=== PATIENT | male | born 1955 | race African-American/Black ===

== ENCOUNTER 2020-03-30 12:04 | Emergency (ER) | payer OTHER, SELFPAY ==
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
== END 2020-03-30 14:16 | disposition home or self-care (01) ==
LOC: MADERS 12:04
DX: S39.012A Strain of muscle, fascia and tendon of lower back, initial encounter (principal); S16.1XXA Strain of muscle, fascia and tendon at neck level, initial encounter; E10.9 Type 1 diabetes mellitus without complications; I10 Essential (primary) hypertension; V43.52XA Car driver injured in collision with other type car in traffic accident, initial encounter
CPT/HCPCS: 72040; 72100

== ENCOUNTER 2025-10-09 17:47 | Emergency (ER) | payer MEDICARE, MEDICAID ==
[2025-10-09] MEDS ORDERED: Dextrose 50% Abboject 50 ML SYRINGE ONE (18:42)
[2025-10-09 18:51] LABS: #Basophils 0.1 thou/uL (0.0-0.2); #Eosinophils 0.1 thou/uL (0.0-0.7); #Lymphocytes 1.2 thou/uL (1.20-3.40); #Monocytes 0.5 thou/uL (0.11-0.59); #Neutrophils 6.0 thou/uL (1.40-6.50); %Basophils 1.2 % (0.0-1.0); %Eosinophils 1.1 % (0.0-10.0); %Lymphocytes 15.3 % (21.0-51.0); %Monocytes 6.2 % (0.0-10.0); %Neutrophils 76.2 % (42.0-75.0); Hematocrit 36.0 % (42.0-52.0); Hemoglobin 11.1 g/dL (14.0-18.0); Mean Corpuscular Hemoglobin 28.9 pg (27.0-31.0); Mean Corpuscular Volume 93.7 fl (78.0-98.0); Platelet Count 224 10x3/uL (130-400); Red Blood Cell (RBC) Count 3.84 mill/uL (4.70-6.10); White Blood Cell (WBC) Count 7.9 10x3/uL (4.8-10.8)
[2025-10-09 19:08] LABS: ALT (SGPT) 16 U/L (Less than 45); AST (SGOT) 26 U/L (11-34); Albumin 3.7 g/dL (3.1-4.5); Alkaline Phosphatase 47 U/L (40-110); Anion Gap 14 mmol/L (10-20); BUN (Urea Nitrogen) 19 mg/dL (8.4-25.7); Bilirubin, Total 0.5 mg/dL (0.3-1.2); Calc. Creatinine Clearance 0 mL/min (70-130); Calcium 8.4 mg/dL (7.8-10.44); Carbon Dioxide 23 mmol/L (23-31); Chloride 110 mmol/L (98-107); Globulin 3.0 g/dL (2.4-3.5); Potassium 3.7 mmol/L (3.5-5.1); Sodium 143 mmol/L (136-145)
[2025-10-09 19:09] LABS: Acetaminophen Less than 10 mcg/mL (Less than 10); Glucose 50 mg/dL (83-110); Salicylate Less than 8.0 mg/dL (Less than 8.0)
[2025-10-09 19:17] LABS: Bicarbonate (HCO3v) 29.3 mmol/L (22.0-28.0); CO2 Tension (PvCO2) 54.2 mmHg (42.0-51.0); Calcium, Ionized 1.20 mmol/L (1.15-1.33); Chloride 112 mmol/L (98-107); Hemoglobin - Calc 12.0 g/dL (14.0-18.0); Potassium 3.9 mmol/L (3.5-5.1); Sodium 145 mmol/L (138-145); T. Carbon Dioxide 31.0 mmol/L (22.0-28.0); vO2 Saturation-calc 99.7 % (60.0-85.0)
== END 2025-10-10 01:00 | disposition home or self-care (01) ==
LOC: MADERS 17:47
DX: E10.649 Type 1 diabetes mellitus with hypoglycemia without coma (principal); I10 Essential (primary) hypertension
CPT/HCPCS: 80053; 80307; 82330; 82435; 82803; 82962; 84132; 84295; 85014; 85025; 93005; J7999; 36416; 96360; 96361